=== PATIENT | male | born 1955 | race Caucasian/White ===

== ENCOUNTER → 2017-05-22 | Outpatient (CLI) | payer BC ==
--- NOTE | 2017-05-22 17:40 | RADRPT ---
PROCEDURE: XR Chest. CLINICAL INDICATION: Hypertension. TECHNIQUE: Two views. Frontal and lateral. COMPARISON: 04/11/2016. FINDINGS: The lungs are clear. The heart size is normal. There is no pleural effusion. There is no pneumothorax. IMPRESSION: 1. Normal chest radiograph. RPTAT: QQ .Gilbert De La Cruz MD, MD Date Time Electronically viewed and signed by .Gilbert De La Cruz MD, MD on 05/22/2017 17:40 .R/
== END | disposition home or self-care (01) ==
LOC: LAB 07:48
PROVIDERS: ATTEND Internal Medicine
DX: I10 Essential (primary) hypertension (principal); E55.9 Vitamin D deficiency, unspecified
CPT/HCPCS: 71020; 80053; 80061; 81003; 82652; 84153; 84154; 84443; 85025; 93005

== ENCOUNTER 2018-10-14 06:41 | Day surgery (SDC) | payer BC ==
[~2018-10-14] VITALS: Ht 170.2 cm; Wt 86.1 kg
[2018-10-14 07:11] VITALS: Ht 170.2 cm; Wt 86.1 kg
[2018-10-14 07:36] VITALS: BP 145/91; PULSE 80; RESP 12
[2018-10-14] MEDS ORDERED: BLOOD PRESSURE MED (07:47)
--- NOTE | 2018-10-14 08:20 | PREAC ---
Date/Time of Note Date/Time of Note DATE: 10/14/18 TIME: 08: Anesthesia Eval and Record Evaluation Time Pre-Procedure Interview DATE: 10/14/18 TIME: 08:19 Age 62 Sex male NPO: 8 hrs Preoperative diagnosis screening Planned procedure colonoscopy Past Medical History Past Medical History: Includes Cardio: HTN Surgery & Anesthesia Issues No known issue Meds Anticoagulation: No Beta Sheila within 24 hr: No Reason Beta Sheila not given: Pt. not on B-Sheila (patient does not remember name of blood pressure medicine he is on) Reported Medications [Blood Pressure Med] No Conflict Check 10/14/18 Meds reviewed: Yes Allergies Coded Allergies: No Known Allergy (Unverified , 10/14/18) Allergies Reviewed: Yes Labs/Studies Labs Reviewed: Reviewed by anesthesiologist test: N/A Pre-procedure Exam Last vitals Vital Signs Date Temp Pulse Resp B/P (MAP) Pulse Ox O2 O2 Flow FiO2 Time Delivery Rate 10/14/18 97.9 80 12 145/91 97 Room Air 07:36 (109) Airway: Adequate mouth opening, Adequate thyromental dist Mallampati: Mallampati II Teeth: Normal Lung: Normal Heart: Normal ASA Physical Status ASA physical status: 2 Emergency: None Planned Anesthetic General/MAC: Mask Planned Pain Management Parenteral pain med Pre-operative Attestations Prior to commencing anesthesia and surgery, the patient was re-evaluated, there was verification of: *The patient's identity *The results of appropriate recent lab work and preoperative vital signs *The above evaluation not changing prior to induction *Anesthetic plan, risk benefits, alternative and complications discussed with patient/family; questions answered; patient/family understands, accepts and wishes to proceed. LOUIS HENDRIX MD Oct 14, 2018 08:20
[2018-10-14] MEDS ORDERED: LIDOCAINE 2% (SDV) 5 ML INJ ONE (08:23)
[2018-10-14] MEDS ORDERED: PROPOFOL 40 ML ONE (08:23)
[2018-10-14] MEDS ORDERED: ONDANSETRON 4 MG INJ IV PRN (08:30)
--- NOTE | 2018-10-14 09:00 | PAC ---
Date/Time of Note Date/Time of Note DATE: 10/14/18 TIME: 08:59 Post-Anesthesia Notes Post-Anesthesia Note Last documented vital signs Vital Signs Date Temp Pulse Resp B/P (MAP) Pulse Ox O2 O2 Flow FiO2 Time Delivery Rate 10/14/18 97.9 80 12 145/91 97 Room Air 07:36 (109) Activity: WNL Respiratory function: WNL Cardiovascular function: WNL Mental status: Baseline Pain reasonably controlled: Yes Hydration appropriate: Yes Nausea/Vomiting absent: Yes Comments BP: 139/80 HR: 69 RR: 15 T:98 SaO2: 99% LOUIS HENDRIX MD Oct 14, 2018 09:00
[2018-10-14 09:10] VITALS: BP 159/88; PULSE 64; RESP 18
[2018-10-14 09:15] VITALS: BP 159/88; PULSE 63; RESP 18
== END 2018-10-14 10:10 | disposition home or self-care (01) ==
LOC: GIL 06:41 → EEVIPCON 06:41 → GIL 06:46
PROVIDERS: ATTEND Internal Medicine Gastroenterology
DX: Z12.11 Encounter for screening for malignant neoplasm of colon (principal); K64.0 First degree hemorrhoids; I10 Essential (primary) hypertension